=== PATIENT | female | born 1990 | race Caucasian/White ===

== ENCOUNTER → 2018-09-04 | Outpatient (CLI) | payer BC | LOC: COL.RAD 13:30 | DX: R10.31 Right lower quadrant pain (principal) ==

== ENCOUNTER 2020-01-03 14:51 | Inpatient (IN) | payer BC ==
[~2020-01-03] VITALS: Ht 170.2 cm; Wt 69.5 kg
[2020-01-03 17:25] LABS: BASO % 0.8 % (0.0-2.0); EOS # 0.4 (0.0-0.7); EOS % 7.3 % (0-4.0); GRAN # 2.8 (1.4-6.5); GRAN % 55.1 % (42.2-75.2); HEMATOCRIT 41.9 % (37.0-47.0); HEMOGLOBIN 13.9 g/dl (12.5-16.0); LYMPH # 1.5 (1.2-3.4); LYMPH % 29.9 % (20.0-51.0); MEAN CELL VOLUME 92 fl (80.0-100.0); MEAN CORPUSCULAR HEMOGLOBIN 31 pg (27.0-31.0); MEAN CORPUSCULAR HGB CONC 33 g/dl (33.0-37.0); MEAN PLATELET VOLUME 9.9 fl (7.4-10.4); MONO # 0.3 (0.1-0.6); MONO % 6.7 % (1.7-9.3); PLATELET COUNT 290 K/mm3 (130-400); RED BLOOD COUNT 4.55 M/mm3 (4.10-5.30); REDCELL DISTRIBUTION WIDTH-CV 11.9 % (11.5-14.5)
[2020-01-03] MEDS ORDERED: KLONOPIN 1MG1 MG PO (17:27)
[2020-01-03 17:40] VITALS: BP 109/73; PULSE 73; TEMP 99.2
[2020-01-03] MEDS ORDERED: PHENERGAN 25 TA25 MG PO (17:51)
[2020-01-03] MEDS ORDERED: TOPAMAX 100MG100 M1 PO (17:52)
[2020-01-03] MEDS ORDERED: PRISTIQ 50 MG T50 MG PO (17:53)
[2020-01-03] MEDS ORDERED: ZANAFLEX2 MG PO (17:56)
[2020-01-03] MEDS ORDERED: SYMMETREL100 MG PO (17:59)
[2020-01-03] MEDS ORDERED: MONODOX100 PO (18:03)
[2020-01-03 18:50] LABS: ALANINE AMINOTRANSFERASE 22 U/L (4-34); ALBUMIN 4.3 gm/dL (3.5-5.0); ALKALINE PHOSPHATASE 60 U/L (50-136); ANION GAP 7 mmol/L (7-16); AST,SGOT 23 U/L (15-37); BILIRUBIN,TOTAL 0.4 mg/dL (0.0-1.0); BLOOD UREA NITROGEN 20 mg/dL (7-17); CALCIUM 9.5 mg/dL (8.4-10.2); CARBON DIOXIDE 27 mmol/L (22-30); CHLORIDE 106 mmol/L (98-107); CREATININE, serum 0.87 (0.52-1.25); GLUCOSE 92 mg/dL (74-106); POTASSIUM 4.1 mmol/L (3.4-5.0); SODIUM 139 mmol/L (137-145)
[2020-01-03 18:56] LABS: C-REACTIVE PROTEIN < 0.5 mg/dL (0.0-0.9)
[2020-01-03 19:00] VITALS: BP 99/64; PULSE 77; TEMP 98.7
[2020-01-04 05:30] VITALS: BP 97/64; PULSE 70; TEMP 98
[2020-01-04 07:45] VITALS: BP 107/72; PULSE 75; TEMP 97.9
[2020-01-04 14:34] VITALS: BP 107/72; PULSE 81; TEMP 98.7
[2020-01-04 20:35] VITALS: BP 100/58; PULSE 69; TEMP 98.7
[2020-01-05 00:10] VITALS: BP 109/62; PULSE 70; TEMP 98.1
[2020-01-05 09:00] VITALS: BP 94/60; PULSE 64; TEMP 98.4
[2020-01-05 16:28] VITALS: BP 105/74; PULSE 86; TEMP 98
--- NOTE | 2020-01-05 18:10 | NUR ---
RN called to pt room at 1735, pt asking for phergan for nausea. At this time, pt states that her pain is worsening, now rating pain at 7/10. Pt states pain in her lower right quadrant, is sharp, and radiating down toward her pelvis and leg. Pt states she also has a headache. Abdomen soft but tender on palpation, no rebound pain noted, VSS. Pt given 2mg morphine and 1000mg tylenol at this time. Pt continues resting with K-Pad over lower abdomen.
[2020-01-05 18:45] VITALS: BP 106/67; PULSE 74; TEMP 98.9
--- NOTE | 2020-01-06 06:30 | NUR ---
RN at bedside for assessment. Patient rates pain at "7 out of 10", reports pain is worse on right side. Patient given pain medication as ordered. Assessment completed, see documentation.
[2020-01-06 06:44] VITALS: BP 90/51; PULSE 66; TEMP 97.9
[2020-01-06 07:36] LABS: EOS # 0.7 (0.0-0.7); GRAN # 1.3 (1.4-6.5); GRAN % 32.6 % (42.2-75.2); HEMATOCRIT 37.2 % (37.0-47.0); HEMOGLOBIN 12.5 g/dl (12.5-16.0); LYMPH # 1.5 (1.2-3.4); LYMPH % 38.2 % (20.0-51.0); MEAN CELL VOLUME 93 fl (80.0-100.0); MEAN CORPUSCULAR HEMOGLOBIN 31 pg (27.0-31.0); MEAN CORPUSCULAR HGB CONC 34 g/dl (33.0-37.0); MEAN PLATELET VOLUME 9.8 fl (7.4-10.4); MONO # 0.4 (0.1-0.6); MONO % 10.4 % (1.7-9.3)
[2020-01-06 08:14] LABS: PLATELET COUNT 179 K/mm3 (130-400)
--- NOTE | 2020-01-06 09:22 | NUR ---
Patient down to ultrasound.
[2020-01-06 15:57] VITALS: BP 93/56; PULSE 82; TEMP 98.3
[2020-01-06 20:00] VITALS: BP 110/68; PULSE 79; TEMP 98.3
--- NOTE | 2020-01-06 21:50 | NUR ---
Pt calls out requesting "my night time meds and pain medication" All 2100 meds taken in, pt states "I took my Pristiq, symmetrel, topiramate, and Klonipin. I just need the Motrin, colace, percocet, and amytriptyline" Pt reports paiin is a 10, and presses on left side. K-pad turned back on and encouraged to use.
--- NOTE | 2020-01-06 22:20 | NUR ---
pt calls out, requests phenergan. Pt in bathroom, sitting by toilet stating "I just threw up a little" back to bed without assistance, phenergan given.
[2020-01-07] VITALS (8 sets, daily range): BP systolic 99–111; BP diastolic 59–69; PULSE 63–75; TEMP 97.8–98
--- NOTE | 2020-01-07 05:50 | NUR ---
INT site tender to palpation, doesn't flush well. Site dc'd. New IV site to L hand.
--- NOTE | 2020-01-07 07:30 | NUR ---
Surgery here for patient. Gave report to
--- NOTE | 2020-01-07 08:30 | NUR ---
Continues to be in surgery.
--- NOTE | 2020-01-07 09:55 | NUR ---
Back from surgery. Report given by Mariam Redding on right arm. O2 at 2L. Denies any pain at this time. States would like more benadryl. Let her know that she had 50 mg at 0800 this morning and would not get any more until about noon time.
--- NOTE | 2020-01-07 10:40 | NUR ---
Rests in bed, alert. Denies any needs at this time.
--- NOTE | 2020-01-07 11:00 | NUR ---
Request pain medication. Percocet 5/325 mg one given per request and as ordered.
--- NOTE | 2020-01-07 11:25 | NUR ---
Dr. Montgomery here, visits with patient.
--- NOTE | 2020-01-07 11:40 | NUR ---
Rests in bed, alert. 1152 Percocet 5/325 mg given per request and as ordered.
[2020-01-07] MEDS ORDERED: PERCOCET 325 MG1 TA2 PO (11:47)
[2020-01-07] MEDS ORDERED: IBU600 MG PO (11:47)
--- NOTE | 2020-01-07 12:40 | NUR ---
Ambulates to the bathroom. States voided small amount. 1300 Discharge instructions given, verbalizes understanding. Percocet 5/325 mg prescription given. States friend will pick her up. 1330 Dismiss to home with instructions. Alert, ambulatory, stable.
== END 2020-01-07 13:30 | disposition home or self-care (01) | DRG 742 ==
LOC: OB 14:51
PROVIDERS: ADMIT Obstetrics & Gynecology
PROC: 0UB14ZZ Excision of Left Ovary, Percutaneous Endoscopic Approach (ICD-10-PCS; principal; 2020-01-06)
DX: N83.202 Unspecified ovarian cyst, left side (principal); N70.02 Acute oophoritis; J98.11 Atelectasis; N83.201 Unspecified ovarian cyst, right side; Z90.710 Acquired absence of both cervix and uterus
CPT/HCPCS: J0290; J1100; J1200; J1580; J1885; J2270; J2405; J2704; J3010; J7120

== ENCOUNTER 2020-06-09 18:04 | Emergency (ER) | payer BC ==
[~2020-06-09] VITALS: Ht 175.3 cm; Wt 70.5 kg
[~2020-06-09 18:04] MED LIST: IBU600 MG PO; KLONOPIN 1MG1 MG PO; MONODOX100 PO; PERCOCET 325 MG1 TA2 PO; PHENERGAN 25 TA25 MG PO; PRISTIQ 50 MG T50 MG PO; SYMMETREL100 MG PO; TOPAMAX 100MG100 M1 PO; ZANAFLEX2 MG PO
[2020-06-09 18:25] VITALS: TEMP 98.5
[2020-06-09 18:51] LABS: COLLECTION METHOD CLEAN CATCH
[2020-06-09 18:59] LABS: PH 7 (5-8); SQUAMOUS EPITHELIAL None Seen /hpf; URINE APPEARANCE Clear; URINE BACTERIA None Seen /hpf; URINE BILIRUBIN Negative (NEGATIVE); URINE BLOOD Negative (NEGATIVE); URINE COLOR Yellow; URINE GLUCOSE Negative (NEGATIVE); URINE KETONE Negative (NEGATIVE); URINE LEUKOCYTE ESTERASE Negative (NEGATIVE); URINE NITRATE Negative (NEGATIVE); URINE PROTEIN(semi-quant) Negative (NEGATIVE); URINE RBC None Seen /hpf; URINE UROBILINOGEN Negative (NEGATIVE)
[2020-06-09 19:38] LABS: BASO % 0.5 % (0.0-2.0); EOS # 0.4 (0.0-0.7); EOS % 6.9 % (0-4.0); GRAN # 3.1 (1.4-6.5); GRAN % 55.3 % (42.2-75.2); HEMATOCRIT 45.6 % (37.0-47.0); HEMOGLOBIN 14.6 g/dl (12.5-16.0); LYMPH # 1.7 (1.2-3.4); LYMPH % 30.7 % (20.0-51.0); MEAN CELL VOLUME 92 fl (80.0-100.0); MEAN CORPUSCULAR HEMOGLOBIN 29 pg (27.0-31.0); MEAN CORPUSCULAR HGB CONC 32 g/dl (33.0-37.0); MEAN PLATELET VOLUME 9.9 fl (7.4-10.4); MONO # 0.4 (0.1-0.6); MONO % 6.4 % (1.7-9.3); PLATELET COUNT 219 K/mm3 (130-400); RED BLOOD COUNT 4.98 M/mm3 (4.10-5.30); REDCELL DISTRIBUTION WIDTH-CV 13.3 % (11.5-14.5)
[2020-06-09 19:44] LABS: ALANINE AMINOTRANSFERASE 25 U/L (4-34); ALBUMIN 4.4 gm/dL (3.5-5.0); ALKALINE PHOSPHATASE 69 U/L (50-136); ANION GAP 11 mmol/L (7-16); AST,SGOT 30 U/L (15-37); BILIRUBIN,TOTAL 0.3 mg/dL (0.0-1.0); BLOOD UREA NITROGEN 17 mg/dL (7-17); CALCIUM 9.6 mg/dL (8.4-10.2); CARBON DIOXIDE 22 mmol/L (22-30); CHLORIDE 106 mmol/L (98-107); CREATININE, serum 0.75 (0.52-1.25); GLUCOSE 89 mg/dL (74-106); POTASSIUM 3.5 mmol/L (3.4-5.0); SODIUM 139 mmol/L (137-145); TOTAL PROTEIN 7.6 gm/dL (6.4-8.2)
[2020-06-09 19:55] LABS: C-REACTIVE PROTEIN < 0.5 mg/dL (0.0-0.9)
[2020-06-09] MEDS ORDERED: NORCO 325 MG-51 TAB PO (22:01)
[2020-06-09 22:04] VITALS: BP 104/89; PULSE 78
== END 2020-06-09 22:07 | disposition home or self-care (01) ==
LOC: COL.ER 18:04
PROVIDERS: Nurse Practitioner
DX: R10.31 Right lower quadrant pain (principal); R11.2 Nausea with vomiting, unspecified; Z90.711 Acquired absence of uterus with remaining cervical stump
CPT/HCPCS: J1170; J2405; J7030

== ENCOUNTER 2021-03-06 04:55 | Observation (INO) | payer BC ==
[~2021-03-06] VITALS: Ht 175.3 cm; Wt 69.1 kg
[~2021-03-06 04:55] MED LIST changes: +NORCO 325 MG-51 TAB PO
[2021-03-06 05:46] LABS: ALBUMIN 4.6 gm/dL (3.5-5.0); BILIRUBIN,TOTAL 0.8 mg/dL (0.2-1.2); CALCIUM 9.3 mg/dL (8.4-10.2); CREATININE, serum 0.94 mg/dL (0.57-1.11); POTASSIUM 3.6 mmol/L (3.5-4.5); TOTAL PROTEIN 7.6 gm/dL (6.2-8.1)
[2021-03-06 06:48] LABS: HEMOGLOBIN 12.5 g/dl (12.5-16.0); MEAN CELL VOLUME 90 fl (80.0-100.0); MEAN CORPUSCULAR HEMOGLOBIN 31 pg (27-31); MEAN CORPUSCULAR HGB CONC 35 g/dl (33.0-37.0); MEAN PLATELET VOLUME 9.6 fl (7.4-10.4); PLATELET COUNT 134 K/mm3 (130-400); RED BLOOD COUNT 4.01 M/mm3 (4.10-5.30); REDCELL DISTRIBUTION WIDTH-CV 11.3 % (11.5-14.5)
[2021-03-06 06:50] LABS: HEMATOCRIT 36.1 % (37.0-47.0)
[2021-03-06] MEDS ORDERED: PERCOCET 325 MG1 TA2 PO (08:28)
[2021-03-06] MEDS ORDERED: IBU600 MG PO (08:28)
[2021-03-06 08:45] VITALS: BP 115/68; PULSE 88; TEMP 98.2
[2021-03-06 09:00] VITALS: BP 107/69; PULSE 76
[2021-03-06 09:15] VITALS: BP 104/61; PULSE 62
[2021-03-06 09:30] VITALS: BP 112/64; PULSE 62
--- NOTE | 2021-03-06 09:43 | NUR ---
0845 PT RECIEVE VIA QUITA TO RM 222. PT A&O X4. REPORT RECIEVED AND PLAN OF CARE REVIEWED WITH THE PATIENT.
--- NOTE | 2021-03-06 09:44 | NUR ---
PT DOING FINE DENIES PAIN AT THIS TIME
[2021-03-06 09:45] VITALS: BP 108/54; PULSE 63
--- NOTE | 2021-03-06 09:46 | NUR ---
PT ASKING ABOUT IF SHE GETS TO GO HOME TODAY. EXPLAINED THAT SHE NEEDS TO DRINK AND EAT SOMETHING AND PEE AND THEN SHE CAN DISCHARGE. SHE STATED I CAN PEE NOW, THIS NURSE ASSISTED THE PT TO BATHROOM AND SHE VOIDED A LARGE AMT., PT TOLERATED WELL.
[2021-03-06 10:00] VITALS: BP 117/73; PULSE 75
--- NOTE | 2021-03-06 10:26 | NUR ---
Initial visit attempt; Nurse with patient, Grinding Operator left card offering God's blessings and information regarding the availability of spiritual care at [place]/via [facility].
--- NOTE | 2021-03-06 10:55 | NUR ---
1000 PT DONE EATING BREAKFAST AND TOLERATED IT WELL, SHE STATES SHE IS READY TO LEAVE. 1015 REVIEWED DISCHARGE INSTRUCTIONS WITH HER AND SHE IS AWARE SHE NEEDS TO CALL AND GET A APPOINTMENT FOR 2 WKS FROM NOW.
--- NOTE | 2021-03-06 10:58 | NUR ---
1015 REVIEWED DISCHARGE INSTRUCTIONS AND D/C'D BOTH IV SITES AND DSD APPLIED TO AREAS. PT TO BR VOIDS AND CHANGES INTO HER CLOTHES TO GO HOME. TOLERATED THIS WELL. 1040 PT DISCHARGED TO CAR VIA WHEELCHAIR TO MEET HER FRIEND.
== END 2021-03-06 10:40 | disposition home or self-care (01) ==
LOC: COL.ER 04:55 → OB 06:12
PROVIDERS: Emergency Medicine; ADMIT Obstetrics & Gynecology
DX: S31.41XA Laceration without foreign body of vagina and vulva, initial encounter (principal); R10.2 Pelvic and perineal pain; N93.9 Abnormal uterine and vaginal bleeding, unspecified; G43.909 Migraine, unspecified, not intractable, without status migrainosus; G47.33 Obstructive sleep apnea (adult) (pediatric); G89.29 Other chronic pain; F90.9 Attention-deficit hyperactivity disorder, unspecified type; F32.A Depression, unspecified; F41.9 Anxiety disorder, unspecified; Z79.899 Other long term (current) drug therapy; Z90.710 Acquired absence of both cervix and uterus; Z80.3 Family history of malignant neoplasm of breast
CPT/HCPCS: G0378; J0690; J1170; J1885; J2405; J2704; J3010; J7120

== ENCOUNTER → 2021-05-21 | Outpatient (CLI) | payer BC | LOC: COL.RAD 07:28 | DX: R06.02 Shortness of breath (principal); R07.9 Chest pain, unspecified; U09.9 Post COVID-19 condition, unspecified | CPT/HCPCS: Q9967 ==

== ENCOUNTER → 2021-07-30 | Outpatient (CLI) | payer BC, OTHER | LOC: COL.RAD 06:43 | DX: R10.11 Right upper quadrant pain (principal) ==